=== PATIENT | female | born 1925 | race Caucasian/White ===

== ENCOUNTER → 2017-01-06 | Outpatient (CLI) | payer BC ==
[~2017-01-06] MED LIST: ACT35 PO; AMLO-110 PO; ASPEC81 PO; ATEN50TA8 PO; CALCTAB5 PO; SIMV20TA2 PO
--- NOTE | 2017-01-06 12:51 | MAMMOGRAPHY REPORT ---
BILATERAL DIGITAL SCREENING MAMMOGRAM WITH CAD: 01/06/2017 CLINICAL HISTORY: Routine screening. Patient has no complaints. TECHNIQUE: Current study was also evaluated with a Computer Aided Detection (CAD) system. Bilatera l CC and MLO and XCCL views were obtained. COMPARISON: Comparison is made to exams dated: 01/06/2016 mammogram, 01/01/2015 mammogram, 12/26/2013 mammogram, 12/25/2012 mammogram, 12/23/2011 mammogram, and 12/22/2010 mammogram - . BREAST COMPOSITION: There are scattered areas of fibroglandular density in both breasts. FINDINGS: No suspicious masses, calcifications, or areas of architectural distortion are noted in e ither breast. There has been no significant interval change compared to prior exams. Scattered bilat eral benign-appearing calcifications are not significantly changed. IMPRESSION: ACR BI-RADS CATEGORY 2: BENIGN There is no mammographic evidence of malignancy. A 1 year screening mammogram is recommended. The p atient will receive written notification of the results. Approximately 10% of breast cancers are not detected with mammography. A negative mammographic repor t should not delay biopsy if a clinically suggestive mass is present. Hui Larios M.D. /:01/06/2017 11:44:22 Wireless Technician: Jessica WHEELER(R)(M), letter sent: Normal 1/2 BI-RADS Code: ACR BI-RADS Category 2: Benign
== END | disposition home or self-care (01) ==
LOC: C.MAMM 11:01
PROVIDERS: ATTEND Internal Medicine
DX: Z12.31 Encounter for screening mammogram for malignant neoplasm of breast (principal)

== ENCOUNTER → 2017-01-18 | Outpatient (CLI) | payer BC ==
[2017-01-18 12:32] LABS: BASO % 0.4 %; BASO ABS # 0.03 K/uL (0-0.2); COMPLETE YES; EOS % 0.9 %; HEMATOCRIT 44.7 % (37-47); IG% 0.1 %; LYMPH % 20.4 %; LYMPH ABS # 1.63 K/uL (1.2-3.4); MEAN CELL VOLUME 95.7 fL (80-100); MEAN CORPUSCULAR HEMOGLOBIN 31.5 pg (25-34); MEAN CORPUSCULAR HGB CONC 32.9 g/dl (32-36); MEAN PLATELET VOLUME 11.4 fL (7.4-10.4); MONO % 8.5 %; NEUT % 69.7 %; PLATELET COUNT 175 K/uL (130-400); RED BLOOD COUNT 4.67 M/uL (4.2-5.4); WHITE BLOOD COUNT 7.98 K/uL (4.8-10.8)
[2017-01-18 13:04] LABS: ESTIMATED AVERAGE GLUCOSE 126 mg/dl; HA1C FLAG Normal (Normal)
[2017-01-18 14:33] LABS: CALCIUM 9.6 mg/dl (8.5-10.1)
[2017-01-18 14:45] LABS: ALT/SGPT 31 U/L (12-78); BLOOD UREA NITROGEN 24 mg/dl (7-18); BUN/CREATININE RATIO 21.6 (10-20); CARBON DIOXIDE 29 mmol/L (21-32); CHLORIDE 107 mmol/L (98-107); CHOLESTEROL 140 mg/dl (0-200); GLUCOSE 98 mg/dl (70-99); SODIUM 144 mmol/L (136-145); TRIGLYCERIDES 112 mg/dl (0-150); VERY LOW DENSITY LIPOPROT CALC 22 mg/dl
[2017-01-18 14:49] LABS: ALB/GLOB RATIO 1.1 (0.9-2); ALKALINE PHOSPHATASE 56 U/L (45-117); AST/SGOT 24 U/L (15-37); CHOLESTEROL/HDL RATIO 2.4; HDL CHOLESTEROL 58 mg/dl; LDL CHOLESTEROL CALCULATED 60 mg/dl
== END | disposition home or self-care (01) ==
LOC: C.LABBFT 07:40
PROVIDERS: ATTEND Internal Medicine
DX: E11.9 Type 2 diabetes mellitus without complications (principal); E78.5 Hyperlipidemia, unspecified

== ENCOUNTER → 2017-01-19 | Outpatient (CLI) | payer BC ==
[2017-01-19 13:03] LABS: URINE APPEARANCE CLEAR (CLEAR); URINE BILIRUBIN NEG (NEG); URINE COLOR YELLOW; URINE EPITHELIAL CELL AUTO 20-30 /lpf (0-5); URINE NITRITE NEG (NEG); URINE PH 6.5 (4.5-7.5); UROBILINOGEN NEG (NEG); ZZUR CULT IF INDIC CLEAN CATCH NO
[2017-01-19 13:08] LABS: MANUAL MICROSCOPIC REQUIRED? NO; REVIEW REQ? NO
== END | disposition home or self-care (01) ==
LOC: C.LABSPEC 12:20
PROVIDERS: ATTEND Internal Medicine
DX: I10 Essential (primary) hypertension (principal); E11.9 Type 2 diabetes mellitus without complications

== ENCOUNTER → 2017-01-26 | Outpatient (CLI) | payer BC ==
--- NOTE | 2017-01-26 09:10 | DIAGNOSTIC IMAGING REPORT ---
ULTRASOUND EXAM AAA SCREEN CLINICAL HISTORY: Abdominal pain COMPARISON STUDY: No previous studies for comparison. FINDINGS: There is no evidence of abdominal aortic aneurysm. The maximal aortic diameter is 2 cm. Right iliac artery measures 13 mm. The left iliac artery measures 11 mm. IMPRESSION: No evidence of abdominal aortic aneurysm. Electronically signed by: Dionicio Peña M.D. 01/26/2017 9:09 AM Dictated Date/Time: 01/26/2017 9:07 AM
== END | disposition home or self-care (01) ==
LOC: C.ULTR 08:23
PROVIDERS: ATTEND Internal Medicine
DX: R10.9 Unspecified abdominal pain (principal)

== ENCOUNTER → 2017-03-30 | Outpatient (CLI) | payer BC ==
[2017-03-30 17:54] LABS: BASO % 0.4 %; BASO ABS # 0.03 K/uL (0-0.2); COMPLETE YES; EOS % 1.6 %; HEMATOCRIT 42.3 % (37-47); IG% 0.1 %; LYMPH % 36.7 %; LYMPH ABS # 2.59 K/uL (1.2-3.4); MEAN CORPUSCULAR HEMOGLOBIN 31.6 pg (25-34); MEAN PLATELET VOLUME 11.2 fL (7.4-10.4); MONO % 7.2 %; PLATELET COUNT 175 K/uL (130-400); RED BLOOD COUNT 4.55 M/uL (4.2-5.4); WHITE BLOOD COUNT 7.05 K/uL (4.8-10.8)
[2017-03-30 17:55] LABS: ALT/SGPT 36 U/L (12-78); BLOOD UREA NITROGEN 32 mg/dl (7-18); BUN/CREATININE RATIO 32.4 (10-20); CALCIUM 9.5 mg/dl (8.5-10.1); CARBON DIOXIDE 30 mmol/L (21-32); CHLORIDE 105 mmol/L (98-107); GLUCOSE 105 mg/dl (70-99); POTASSIUM 3.8 mmol/L (3.5-5.1); SODIUM 140 mmol/L (136-145)
[2017-03-30 17:57] LABS: ALKALINE PHOSPHATASE 74 U/L (45-117); AST/SGOT 28 U/L (15-37)
== END | disposition home or self-care (01) ==
LOC: C.LABBFT 11:07
PROVIDERS: ATTEND Nurse Practitioner
DX: R10.9 Unspecified abdominal pain (principal)

== ENCOUNTER → 2017-03-31 | Outpatient (CLI) | payer BC ==
[2017-03-31 12:26] LABS: URINE APPEARANCE CLEAR (CLEAR); URINE BILIRUBIN NEG (NEG); URINE COLOR YELLOW; URINE EPITHELIAL CELL AUTO 20-30 /lpf (0-5); URINE NITRITE NEG (NEG); URINE PH 5.5 (4.5-7.5); URINE SPECIFIC GRAVITY 1.024 (1.000-1.030); UROBILINOGEN NEG (NEG); ZZUR CULT IF INDIC CLEAN CATCH NO
[2017-03-31 12:32] LABS: MANUAL MICROSCOPIC REQUIRED? NO; REVIEW REQ? YES
== END | disposition home or self-care (01) ==
LOC: C.LABBFT 08:17
PROVIDERS: ATTEND Nurse Practitioner
DX: R10.9 Unspecified abdominal pain (principal)

== ENCOUNTER → 2017-04-04 | Outpatient (CLI) | payer BC ==
[~2017-04-04] MED LIST changes: +OPTIRAY 320 IV PRN
--- NOTE | 2017-04-04 11:51 | DIAGNOSTIC IMAGING REPORT ---
ABD/PELVIS IV AND ORAL CONT HISTORY: 89 years-old Female R10.9 Abdominal pain in female symptoms are acute in nature. COMPARISON: CT of the abdomen and pelvis 08/04/2009. TECHNIQUE: Multiple axial CT images of the abdomen and pelvis were obtained following the administration of both IV and oral contrast. 93 mL Optiray 320 was utilized. A dose lowering technique was used consistent with the principals of KERRI. FINDINGS: There is minimal dependent bibasilar atelectasis. There is no pneumoperitoneum identified. The imaged inferior cardiac chambers are mildly enlarged. 4 mm low attenuating lesion of the hepatic dome is unchanged suggesting a cyst or hemangioma. The gallbladder, spleen, pancreas and right adrenal gland are unremarkable. Soft tissue attenuating 1.6 x 1.9 cm circumscribed lesion of the left adrenal gland is again noted, previously measuring 1.8 x 1.3 cm suggesting benign etiology such as a lipid poor adenoma. Exophytic cyst of the inferior pole right kidney is seen, 3.4 x 4.0 cm. The ureters appear unremarkable. Prior hysterectomy. There is an apparent small diverticulum along the left lateral aspect of the urinary bladder measuring up to 1.7 cm in length. There is mild to moderate plaquing of the abdominal aorta. There is no bulky retroperitoneal adenopathy. There is no bowel obstruction. Colonic diverticulosis is noted without diverticulitis. No evidence of acute appendicitis. The soft tissues are within normal limits. There is mild convex left curvature of the lumbar spine. Discogenic degenerative changes are noted at L4-L5 and L5-S1. There is 4 mm anterolisthesis of L4 on L5, likely on a degenerative basis as there is severe facet arthrosis at this level. IMPRESSION: 1. No acute intra-abdominal or intrapelvic abnormality identified. 2. Colonic diverticulosis without diverticulitis. 3. Prior hysterectomy. 4. Additional incidental findings as above. The above report was generated using voice recognition software. It may contain grammatical, syntax or spelling errors. Electronically signed by: Mejia Sellers M.D. 04/04/2017 11:50 AM Dictated Date/Time: 04/04/2017 11:42 AM
== END | disposition home or self-care (01) ==
LOC: C.CTS 11:08
PROVIDERS: ATTEND Nurse Practitioner
DX: R10.9 Unspecified abdominal pain (principal)